=== PATIENT | female | born 1945 | race Caucasian/White ===

== ENCOUNTER → 2017-11-26 | Outpatient (CLI) | payer OTHER ==
[~2017-11-26] VITALS: Ht 177.8 cm; Wt 68.0 kg
[~2017-11-26] MED LIST: ACID CONTROL150 MG PO; ADVIL,NUPRIN,M200 MG PO; CALCIUM 250+D1 EACH PO; FISH OIL 1,0001 EA10 PO; GLUCOSAMINE-CH1 EA27 PO; NEURONTIN300 MG PO; VAGIFEM10 MCG VG; VITAMIN E400 UNIT PO
[2017-11-26 09:29] VITALS: BP 140/80
== END | disposition home or self-care (01) ==
LOC: OPR 08:58
DX: M75.121 Complete rotator cuff tear or rupture of right shoulder, not specified as traumatic (principal); F40.240 Claustrophobia
CPT/HCPCS: 73221; J2250; J3010